=== PATIENT | female | born 1990 | race Caucasian/White ===

== ENCOUNTER 2020-02-27 11:46 | Inpatient (IN) | payer OTHER ==
[2020-02-27 12:42] LABS: BILIRUBIN NEGATIVE (NEGATIVE); BLOOD NEGATIVE Ery/uL (NEGATIVE); CLARITY CLEAR (CLEAR); COLOR YELLOW (YELLOW); GLUCOSE (U) NORMAL (NORMAL); LEUKOCYTES NEGATIVE Leu/uL (NEGATIVE); NITRITE NEGATIVE (NEGATIVE); PROTEIN NEGATIVE (NEGATIVE); UROBILINOGEN 0.2 mg/dL (0.2-1.0)
[2020-02-27 12:47] LABS: AMPHETAMINES NEGATIVE (NEGATIVE); BARBITURATES NEGATIVE (NEGATIVE); ECSTASY (MDMA) NEGATIVE (NEGATIVE); MARIJUANA (THC) POSITIVE (NEGATIVE); METHADONE NEGATIVE (NEGATIVE); OPIATES NEGATIVE (NEGATIVE); OXYCODONE NEGATIVE (NEGATIVE)
[2020-02-27 12:51] LABS: HCT 36.6 % (37.0-47.0); HGB 12.3 g/dl (12.5-16.0); MCH 29.8 pg (25.0-31.0); MCHC 33.6 g/dL (32.0-36.0); MCV 88.6 fL (78.0-100.0); MPV 9.2 fL (6.0-9.5); RBC 4.13 M/uL (4.20-5.40); RDW 13.7 % (11.5-14.0)
[2020-02-27 13:19] LABS: PROTEIN:CREATININE 0.18 RATIO; URINE CREATININE 132.28 mg/dL (29.00-226.00); URINE TOTAL PROTEIN-RANDOM 24.5 mg/dL (<11.9)
[2020-02-27 13:35] LABS: ALBUMIN 2.5 g/dL (3.4-5.0); BILIRUBIN - TOTAL 0.3 mg/dL (0.2-1.0); BUN/CREAT RATIO (CALC) 8.7 RATIO; CREATININE 0.46 mg/dL (0.51-0.95); GLOBULIN (CALCULATION) 4.2 g/dL; POTASSIUM 3.3 mmol/L (3.5-5.1); TOTAL PROTEIN 6.7 g/dL (6.4-8.2); URIC ACID 5.5 mg/dL (2.6-6.2)
[2020-02-29 05:41] LABS: HCT 33.2 % (37.0-47.0); MCH 30.1 pg (25.0-31.0); MCHC 33.1 g/dL (32.0-36.0); MCV 90.7 fL (78.0-100.0); MPV 9.6 fL (6.0-9.5); RBC 3.66 M/uL (4.20-5.40); RDW 14.1 % (11.5-14.0)
[2020-02-29 05:42] LABS: WBC 24.6 K/uL (4.0-10.5)
--- NOTE | 2020-02-29 11:16 | NUR ---
RECEIVED ART LIBRARIAN REPORT THAT MOTHER WAS POSITIVE FOR THC UPON ADMISSION. MET WITH MOTHER. SHE ADMITTED THAT SHE SMOKED MARIJUANA APPROX 3 WEEKS AGO SHE WAS VERY NAUSEATED. SHE DID NOT TEST POS FOR THC OR ANY ILLEGAL DRUGS DURING HER VISITS. MOTHER REPORTS THAT SHE RESIDES WITH THE FOB AND THE 8 YEAR OLD (MASSIEL) IN [place]. THEY RESIDE IN A 3 BEDROOM HOME WITH MODERN CONVIENCES. SHE REPORTS THAT SHE IS EMPLOYED AT [employer] AND THE FOB (AFUA MARX) IS EMPLOYED AT A FACTORY IN [place]. SHE REPORTS THAT SHE AND HEATHER MAKE TO MUCH MONEY FOR [employer], FOOD STAMPS OR MEDICAL CARD. SHE HAS MEDICAL INSURANCE THROUGH [facility] [facility]. SHE STATES THAT SHE HAS NOT SUFFERED ANY ABUSE OR NEGLECT. SHE REPORTS THAT WHEN SHE WAS 17 SHE REMEMBERS BEING DEPRESSED. BUT SINCE THAT TIME HAS NOT SUFFERED WITH DEPRESSION OR ANXIETY. SHE AND HEATHER HAVE AN 8 YEAR OLD SON TOGETHER (MASSIEL). SHE STATES THAT SHE DID SMOKE CIGARETTES, BUT STOPPED SEVERAL YEARS AGO. SHE DID SMOKE MARIJUANA A TEENAGER, BUT HAS NOT SMOKED MARIJUANA UNTIL APPROX 3 WEEKS AGO WHEN SHE WAS NAUSEOUS. 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 SHE APPEARED TO BE BONDING WITH , SHE WAS HOLDING HIM AND COMFORTING HIM. SHE APPEARED HAPPY AND STATED THAT SHE WAS EXCITED TO HAVE A NEW BABY. SHE DECLINED A HANDS REFERRAL. A REFERRAL WAS MADE TO [facility] MOTHER TESTED POS FOR AN ILLEGAL SUBSTANCE.
[2020-03-01 06:01] LABS: BASOPHIL 0.5 % (0-2); EOSINOPHIL 1.4 % (0-5); HCT 35.3 % (37.0-47.0); HGB 11.7 g/dl (12.5-16.0); LYMPHOCYTE 23.8 % (15-48); MCH 29.9 pg (25.0-31.0); MCHC 33.1 g/dL (32.0-36.0); MCV 90.3 fL (78.0-100.0); MONOCYTE 6.3 % (0-12); MPV 9.1 fL (6.0-9.5); NEUTROPHIL 67.1 % (41-80); NRBC 0; PLT 312 K/uL (150-400); RBC 3.91 M/uL (4.20-5.40); RDW 14.4 % (11.5-14.0); WBC 14.1 K/uL (4.0-10.5)
== END 2020-03-01 17:38 | disposition home or self-care (01) | DRG 807 ==
LOC: FOD 11:46 → FOB 11:47
PROVIDERS: ADMIT Obstetrics & Gynecology
PROC: 10E0XZZ Delivery of Products of Conception, External Approach (ICD-10-PCS; principal; 2020-02-28)
PROC: 4A1HX4Z Monitoring of Products of Conception, Cardiac Electrical Activity, External Approach (ICD-10-PCS; 2020-02-28)
PROC: 3E0P7VZ Introduction of Hormone into Female Reproductive, Via Natural or Artificial Opening (ICD-10-PCS; 2020-02-28)
DX: O13.4 Gestational [pregnancy-induced] hypertension without significant proteinuria, complicating childbirth (principal); Z37.0 Single live birth; Z3A.37 37 weeks gestation of pregnancy; D72.829 Elevated white blood cell count, unspecified; Z79.899 Other long term (current) drug therapy; Z20.822 Contact with and (suspected) exposure to COVID-19
CPT/HCPCS: 36415; 80053; 80305; 81003; 82570; 83615; 84156; 84550; 85025; 86850; 86900; 86901; J2405; J3010; J7120; U0002